=== PATIENT | female | born 1970 | race Two or more races ===

== ENCOUNTER 2023-02-05 17:48 | Emergency (ER) | payer OTHER ==
[~2023-02-05] VITALS: Ht 162.6 cm; Wt 73.5 kg
[2023-02-05] MEDS ORDERED: DIETHYLPROPION75 MG PO (18:06)
== END 2023-02-05 20:58 | disposition home or self-care (01) ==
LOC: ER 17:48
DX: M25.512 Pain in left shoulder (principal)